=== PATIENT | female | born 1960 ===

== ENCOUNTER 2018-03-25 08:43 | Emergency (ER) | payer OTHER ==
[2018-03-25 08:53] VITALS: BMI 19.3
[2018-03-25 09:04] VITALS: BP 141/82; PULSE 69; RESP 16; TEMP 98.3; O2SAT 99
--- NOTE | 2018-03-25 09:33 | C.PDOC ---
History Of Present Illness 58 year old female presents to ED for evaluation of left knee and head pain since this morning, onset while stretching. She reports pain to left side of neck which radiates up to left scalp. Limited neck movement due to pain. Denies any other associated symptoms or trauma. No pain medications tried. Denies history of chronic neck pain. L KNEE, HEAD PAIN SINCE THIS MORNING. ONSET WHILE STRETCHING. PAIN L NECK RADIATION L SCALP. LIMITED MOVEMENT NECK DUE TO PAIN. NO OTHER ASSOC SX. DENIES TRAUMA. NO PAIN MEDS TRIED, DENIES HO CHRONIC NECK PAIN EXAM MILD DIST NONTOXIC HEENT NONTEND, ATRAUM NECK +SPASM L LAT NECK W LOCAL TEND LIMITED L LAT ROTATION DUE TO PAIN NO CSPINE TEND +SPASM TEND L UPPER BACK NEURO NO FOCAL DEF REMAINDER NEG Time Seen by Provider: 03/25/18 09:15 Chief Complaint (Nursing): Back Pain History Per: Patient History/Exam Limitations: no limitations Onset/Duration Of Symptoms: Hrs Current Symptoms Are (Timing): Still Present Quality Of Discomfort: "Pain" Previous Symptoms: Neck Pain Associated Symptoms: denies: New Weakness, New Numbness Exacerbating Factor(s): Movement Recent travel outside of the [place]: No Additional History Per: Patient Past Medical History Reviewed: Historical Data, Nursing Documentation, Vital Signs Vital Signs: Last Vital Signs Temp 98.3 F 03/25/18 08:54 Pulse 69 03/25/18 08:54 Resp 16 03/25/18 08:54 BP 141/82 03/25/18 08:54 Pulse Ox 99 03/25/18 09:47 Family History: States: Unknown Family Hx - Social History Hx Alcohol Use: No Hx Substance Use: No - Immunization History Hx Tetanus Toxoid Vaccination: No Hx Influenza Vaccination: Yes (2017) Hx Pneumococcal Vaccination: No Review Of Systems Except As Marked, All Systems Reviewed And Found Negative. Constitutional: Negative for: Fever, Chills Cardiovascular: Negative for: Chest Pain Respiratory: Negative for: Shortness of Breath Musculoskeletal: Positive for: Neck Pain, Leg Pain (left knee). Negative for: Back Pain Neurological: Positive for: Headache. Negative for: Weakness, Numbness, Dizziness Physical Exam - Physical Exam Appears: Non-toxic, Other (In mild distress) Skin: Normal Color, Warm, Dry Head: Atraumatic, Normacephalic, No Tenderness Eye(s): bilateral: Normal Inspection Oral Mucosa: Moist Neck: No Normal ROM, Decreased ROM (limited left lateral rotation due to pain), No Midline Cervical Tenderness, Other (+spasm to left lateral neck with local tenderness) Cardiovascular: Rhythm Regular, No Murmur Respiratory: Normal Breath Sounds, No Rales, No Rhonchi, No Wheezing Gastrointestinal/Abdominal: Soft, No Tenderness Back: No Vertebral Tenderness, Muscle Spasm (spasm to left upper back) Extremity: Normal ROM, No Tenderness, No Deformity Neurological/Psych: Oriented x3, Normal Speech, No Other (no focal deficits) ED Course And Treatment O2 Sat by Pulse Oximetry: 99 (RA) Pulse Ox Interpretation: Normal Medical Decision Making Medical Decision Making: Plan: Flexeril Tylenol Toradol Lidoderm Disposition Counseled Patient/Family Regarding: Diagnosis, Need For Followup, Rx Given - Disposition Referrals: [facility] [Outside] [facility] [Outside] YOUR,PMD [Other] Disposition: HOME/ ROUTINE Disposition Time: 09:34 Condition: IMPROVED Prescriptions: Cyclobenzaprine [Flexeril] 10 mg PO TID #15 tab Ibuprofen [Motrin] 600 mg PO Q6 #30 tab Lidocaine 5% [Lidoderm] 1 ea TD PRN PRN #10 patch PRN Reason: Pain, Moderate (4-7) Instructions: Torticollis (DC) Forms: [employer] (Palauan) Print Language: SINHALA - Clinical Impression Clinical Impression: Torticollis, acute - Scribe Statement The provider has reviewed the documentation as recorded by the Pradeep Salcedo All medical record entries made by the Jay Jayibroxanne were at my direction and personally dictated by me. I have reviewed the chart and agree that the record accurately reflects my personal performance of the history, physical exam, medical decision making, and the department course for this patient. I have also personally directed, reviewed, and agree with the discharge instructions and disposition.
[2018-03-25] MEDS ORDERED: Lidocaine 5% Patch TD ONE (09:39)
[2018-03-25] MEDS: Lidocaine 5% Patch TD STA ×2 (09:44→09:46)
== END 2018-03-25 09:52 | disposition home or self-care (01) ==
LOC: C.ER 08:43
DX: M43.6 Torticollis (principal)
CPT/HCPCS: 96372; 99282; J1885

== ENCOUNTER 2019-02-05 11:58 | Emergency (ER) | payer OTHER ==
[2019-02-05 12:14] VITALS: BMI 20.6
[2019-02-05 12:15] VITALS: O2SAT 100
--- NOTE | 2019-02-05 13:03 | C.PDOC ---
History Of Present Illness 59 yr old macanese speaking female F w/ hx of torticollis, dizziness, vertigo p/w throat pain. Pt notes that she was intubated 10/25/18 for syncopal episode and had a negative CT scan at that time. Records indicate that she was d/c from [facility] at that time after extubation and workup. Pt notes that since then she has had chronic sore throat, with intermittent bloody sputum. She notes that her sputum has overall improved. She notes that her chronic throat issues since extubation has continued however. She denies any worsening SOB or throat closing currently. She denies any rash or allergy symptoms. She denies any fall or trauma to her neck. No chest pain or leg swelling. She notes that it has been difficult for her to swallow for 3 months since being extubated but that she is still able to take pills down and water and eat without major issues. She notes that she was seen 01/28 in [place] and reccomended to follow up outpt w/ ENT. She notes that she is here for ENT referral because she does not know the area t [place] well. 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 Time Seen by Provider: 02/05/19 13:03 Chief Complaint (Nursing): Shortness Of Breath Past Medical History Vital Signs: Last Vital Signs Temp 98.4 F 02/05/19 12:10 Pulse 65 02/05/19 12:10 Resp 18 02/05/19 12:10 BP 128/66 02/05/19 12:10 Pulse Ox 100 02/05/19 12:10 Primary Care Provider: FAMILY PROVIDER,NO Family History: States: Unknown Family Hx - Social History Hx Alcohol Use: No Hx Substance Use: No - Immunization History Hx Tetanus Toxoid Vaccination: No Hx Influenza Vaccination: Yes (2017) Hx Pneumococcal Vaccination: No Review Of Systems Constitutional: Negative for: Fever, Chills, Sweats, Weakness, Malaise Eyes: Negative for: Pain, Vision Change ENT: Negative for: Ear Pain, Ear Discharge, Nose Pain, Nose Congestion, Mouth Pain Cardiovascular: Negative for: Chest Pain, Palpitations, Orthopnea, Paroxysmal Noc. Dyspnea, Edema Respiratory: Positive for: Hemoptysis (mild, intermittent, improved overall). Negative for: Cough, Shortness of Breath, SOB with Excertion, Pleuritic Pain, Wheezing Gastrointestinal: Negative for: Nausea, Vomiting, Abdominal Pain, Constipation, Melena, Hematochezia, Hematemesis Genitourinary: Negative for: Dysuria, Frequency, Incontinence, Hematuria, Vaginal Discharge, Vaginal Bleeding Musculoskeletal: Negative for: Neck Pain, Shoulder Pain, Arm Pain, Back Pain, Hand Pain, Leg Pain Skin: Negative for: Rash, Lesions Neurological: Negative for: Weakness, Numbness, Incoordination, Confusion, Seizures, Altered Mental Status, Headache Psych: Negative for: Anxiety, Depression Physical Exam - Physical Exam Appears: Well, Non-toxic, No Acute Distress Skin: Normal Color, Warm, Dry Head: Atraumatic, Normacephalic Eye(s): bilateral: Normal Inspection, PERRL, EOMI Ear(s): Bilateral: Normal Nose: Normal, No Flaring, No Discharge, No Epistaxis, No Deformity, No Tenderness, No Septal Hematoma Oral Mucosa: No Moist Tongue: Normal Appearing, No Swelling, No Lesions Lips: Normal Appearing, No Swelling, No Contusion Teeth: Normal Dentition, No Caries, No Edentulous Gingiva: Normal Appearing, No Erythema, No Ulceration Throat: Normal, No Erythema, No Exudate, No Drooling, No Mass, Other (uvula midline, no posterior oropharyngeal redness noted) Neck: Normal, Normal ROM, No Decreased ROM, Trachea Midline, No Trachea De viated, No Midline Cervical Tenderness, No Paracervical Tenderness, No Step Off Deformity, Supple, Other (no massess or swelling noted. No meningeal signs) Lymphatic: Normal Exam (no cervical ant / post. lymphadenopathy) Chest: Symmetrical Cardiovascular: Rhythm Regular Respiratory: Normal Breath Sounds Gastrointestinal/Abdominal: Normal Exam, Soft, No Tenderness, No Organomegaly, No Mass, No Distention, No Guarding Back: Normal Inspection, No CVA Tenderness, No Vertebral Tenderness Extremity: Normal ROM, No Tenderness Extremity: Bilateral: Atraumatic Neurological/Psych: Oriented x3, Normal Speech, Normal Cognition, Normal Cranial Nerves, No Cerebellar Signs, Normal Motor Gait: Steady ED Course And Treatment - Laboratory Results Result Diagrams: 02/05/19 13:37 02/05/19 13:37 O2 Sat by Pulse Oximetry: 100 Medical Decision Making Medical Decision Makin yr old macanese speaking female F w/ hx of torticollis, dizziness, vertigo p/w throat pain. Recent intubation 2/2 syncopal episode. Had negative workup at [facility]. Since extubation has noted chronic throat pain, no worsened, overall improving. On exam, speaking in full sentences in NAD. Lungs CTA b/l. Throat clear w/ out signs of swelling in neck. No exposure to any allergens or impdending feeling of throat closure. Contrary to triage note: PT was intubated 2/2 syncope and not to SOB or throat closing. Pt has been seen at [place] office: Dr. Lo Biggs and told to follow up with ENT outpt. Given no change and overall improvement of symptoms, likely chronic sore throat 2/2 previous intubation. Hemoptysis amount mild, only streaks intermittently. Will seek imaging, labs, and likely outpot followup. No indication for CT at this time given chronic issues, pt overall well appearing and in NAD with normal ENT and neck exam. 1447 EK, nsr, no stemi labs, imaging unremarkable pt tolerating clears here in ED repeat exam unremarkable: no sob, no throat swelling, pt speaking in full sentences in NAD clear for d/c home with return indications and f/u w/ ENT pt agreeable to plan Disposition - Disposition Referrals: Jc Julien MD [Staff Provider] - [facility] [Outside] [facility] [Outside] [facility] [Outside] Aleta Guallpa MD [Staff Provider] - Disposition Time: 14:49 Condition: STABLE Additional Instructions: FOLLOW UP WITH DR. JULIEN IN REGARDS TO YOUR POST EXTUBATION PAIN X3 MONTHS VIRIDIANA MCCOY, thank you for letting us take care of you today. Your provider was Jeronimo Diaz and you were treated for SORE THROAT,SOB. The emergency medical care you received today was directed at your acute symptoms. If you were pres cribed any medication, please fill it and take as directed. It may take several days for your symptoms to resolve. Return to the Emergency Department if your symptoms worsen, do not improve, or if you have any other problems. Please contact your doctor or call one of the physicians/clinics you have been referred to that are listed on the Patient Visit Information form that is included in your discharge packet. Bring any paperwork you were given at discharge with you along with any medications you are taking to your follow up visit. Our treatment cannot replace ongoing medical care by a primary care provider outside of the emergency department. Thank you for allowing the [email or web address] team to be part of your care today. If you had an X-Ray or CT scan: A Radiologist will review the ED reading if any change in treatment is needed we will contact you. If you had a blood, urine, or wound culture: It will take several days for the results, if any change in treatment is needed we will contact you. If you had an STI test: It will take 48 hours for the results. Please call after 1 week if you have not heard back. Instructions: Sore Throat in Adults Forms: [employer] (Japanese), [employer] (Malagasy) Print Language: CAMBODIAN - Clinical Impression Clinical Impression: Sore throat, Hemoptysis
[2019-02-05 13:40] LABS: BASO % 0.5 % (0.0-2.0); EOS % 0.7 % (0.0-4.0); LYMPH # 1.4 K/uL (1.0-4.3); LYMPH % 22.1 % (20.0-40.0); MEAN CELL VOLUME 92.7 fL (81.0-99.0); MEAN CORPUSCULAR HEMOGLOBIN 31.9 pg (27.0-31.0); MEAN CORPUSCULAR HGB CONC 34.4 g/dL (33.0-37.0); MEAN PLATELET VOLUME 8.1 fL (7.2-11.7); MONO # 0.6 K/uL (0.0-0.8); NEUT # 4.3 K/uL (1.8-7.0); NEUT % 67.7 % (50.0-75.0); RBC 4.38 Mil/uL (3.80-5.20); RED CELL DISTRIBUTION WIDTH 12.6 % (11.5-14.5); WHITE BLOOD COUNT 6.3 K/uL (4.8-10.8)
[2019-02-05 13:53] LABS: PARTIAL THROMBOPLASTIN TIME 33.4 SECONDS (21-34)
[2019-02-05 13:56] LABS: ALB/GLOB RATIO 1.6 (1.0-2.1); ALBUMIN 4.3 g/dL (3.5-5.0); ALT/SGPT 22 U/L (9-52); AST/SGOT 32 U/L (14-36); BLOOD UREA NITROGEN 16 mg/dL (7-17); CALCIUM 8.9 mg/dl (8.6-10.4); GFR NON-AFRICAN AMERICAN > 60
--- NOTE | 2019-02-05 14:37 | RAD ---
Date of service: 02/05/2019 HISTORY: Sore throat, shortness of breath COMPARISON: 06/12/2016 TECHNIQUE: Chest PA and lateral FINDINGS: LINES AND TUBES: None. LUNG AND PLEURA: The lungs are well inflated and clear. No pleural effusion or pneumothorax. HEART AND MEDIASTINUM: The heart is not enlarged. No aortic atherosclerotic calcifications present. The hilar and mediastinal contours are within normal limits. SKELETAL STRUCTURES: The bony structures are within normal limits for the patient's age. VISUALIZED UPPER ABDOMEN: Normal. OTHER FINDINGS: None. IMPRESSION: No active pulmonary disease.
[2019-02-05 14:53] VITALS: BP 153/80; PULSE 69; RESP 20; TEMP 98.5
== END 2019-02-05 15:17 | disposition home or self-care (01) ==
LOC: C.ER 11:58
DX: J02.9 Acute pharyngitis, unspecified (principal); R04.2 Hemoptysis